=== PATIENT | male | born 1990 | race African-American/Black ===

== ENCOUNTER 2023-07-21 09:06 | Observation (INO) | payer OTHER ==
[2023-07-21] MEDS ORDERED: Pantoprazole 40 MG in Sodium Chloride 0.9% 10 ML IVPUSH ONE (09:41)
[2023-07-21] MEDS ORDERED: Prochlorperazine 10 MG/2 ML SDV IVPUSH ONE (09:42)
[2023-07-21] MEDS ORDERED: Sodium Chloride 0.9% 2.5 ML Syringe FLUSH PRN (09:46)
[2023-07-21] MEDS ORDERED: Sodium Chloride 0.9% 10 ML Syringe FLUSH PRN (09:46)
[2023-07-21] MEDS ORDERED: Sodium Chloride 0.9% 1,000 ML IV ONE ×3 (09:46→15:35)
[2023-07-21] MEDS ORDERED: fentaNYL 50 MCG/ML SDV IVPUSH ONE (09:46)
[2023-07-21] MEDS ORDERED: Naloxone 0.4 MG/ML SDV IVPUSH PRN (09:46)
[2023-07-21 09:59] LABS: BASOPHILS PERCENT AUTO 0.3 % (0.0-1.5); EOSINOPHILS ABSOLUTE AUTO 0.4 K/uL (0.0-0.7); EOSINOPHILS PERCENT AUTO 3.3 % (0.0-7.0); HEMATOCRIT 46.6 % (38.0-50.0); HEMOGLOBIN 16.1 g/dL (13.0-17.0); LYMPHOCYTES ABSOLUTE AUTO 4.8 K/uL (0.6-2.4); LYMPHOCYTES PERCENT AUTO 39.9 % (16.0-40.0); MEAN CORPUSCULAR HEMOGLOBIN 29.7 pg (27.0-32.0); MEAN CORPUSCULAR HGB CONC 34.5 g/dL (31.0-37.0); MEAN CORPUSCULAR VOLUME 85.8 fL (80.0-98.0); MONOCYTES ABSOLUTE AUTO 1.3 K/uL (0.0-0.8); MONOCYTES PERCENT AUTO 10.7 % (0.0-15.0); NEUTROPHILS ABSOLUTE AUTO 5.5 K/uL (1.4-5.7); NEUTROPHILS PERCENT AUTO 45.8 % (48.0-80.0); NRBC ABSOLUTE 0 K/uL; PLATELET COUNT,PLT 378 K/uL (150-400); RED BLOOD CELL COUNT 5.43 M/uL (4.50-5.90); WHITE BLOOD CELL COUNT,WBC 11.92 K/uL (4.0-11.0)
[2023-07-21 10:02] LABS: LACTIC ACID 2.3 mmol/L (0.4-2.0)
[2023-07-21 10:06] LABS: INR 1.04 (0.86-1.11)
[2023-07-21 10:15] LABS: ALANINE AMINOTRANSFERASE,ALT 50 IU/L (14-63); ALBUMIN 4.3 g/dL (3.4-5.0); ALKALINE PHOSPHATASE 68 U/L (46-116); ASPARTATE AMNIOTRANSFERASE,AST 27 IU/L (15-37); BILIRUBIN TOTAL 0.3 mg/dL (0.2-1.0); BLOOD UREA NITROGEN,BUN 17 mg/dL (7.0-18.0); CALCIUM 9.8 mg/dL (8.5-10.1); CARBON DIOXIDE,CO2 28.9 mmol/L (21.0-32.0); CHLORIDE,CL 101 mmol/L (98-107); CREATININE 1.4 mg/dL (0.8-1.3); EST CRCL DRUG DOSING (CG) 78.44 mL/min; ESTIMATED GFR 67 mL/min (>60); ETHANOL BLOOD MEDICAL < 3.0 mg/dL; GLUCOSE RANDOM 126 mg/dL (74-106); LIPASE 1423 U/L (16-77); MAGNESIUM 1.9 mg/dL (1.8-2.4); POTASSIUM,K 3.7 mmol/L (3.5-5.1); PROTEIN TOTAL,TP 8.8 g/dL (6.4-8.2); SODIUM,NA 139 mmol/L (136-148)
[2023-07-21 10:27] LABS: AMPHETAMINES SCREEN, URINE NEGATIVE (CUTOFF=500); BARBITURATE SCREEN,URINE NEGATIVE (CUTOFF=200); BENZODIAZEPINES SCREEN,URINE NEGATIVE (CUTOFF=150); BUPRENORPHINE SCREEN,URINE NEGATIVE (CUTOFF=10); METHADONE SCREEN, URINE NEGATIVE (CUTOFF=200); METHAMPHETAMINES SCREEN, URINE NEGATIVE (CUTOFF=500); OXYCODONE SCREEN,URINE NEGATIVE (CUT0FF=100); PCP SCREEN,URINE NEGATIVE (CUTOFF=25); PROPOXYPHENE SCREEN,URINE NEGATIVE (CUTOFF=300); THC SCREEN,URINE 20 NG/ML NEGATIVE (CUTOFF=50)
[2023-07-21] MEDS ORDERED: LORazepam 2 MG/ML SDV IVPUSH PRN (10:48)
[2023-07-21] MEDS ORDERED: Folic Acid 1 MG/0.2 ML UD Syringe SUBCUT SCH (11:00)
[2023-07-21] MEDS ORDERED: Thiamine 200 MG/2 ML MDV IVPUSH SCH (11:00)
[2023-07-21 11:04] LABS: CHOLESTEROL HDL 44 mg/dL (40-60); CHOLESTEROL TOTAL 301 mg/dL (50-200); TRIGLYCERIDES 427 mg/dL (0-200)
[2023-07-21] MEDS: Morphine 2 MG/ML SYRINGE IVPUSH PRN ×3 (11:44→19:30)
[2023-07-21 11:49] LABS: CORONAVIRUS COVID-19 NAA NEGATIVE (NEGATIVE); INFLUENZA A NAA NEGATIVE (NEGATIVE); INFLUENZA B NAA NEGATIVE (NEGATIVE)
[2023-07-21] MEDS: Sodium Chloride 0.9% 1,000 ML IV SCH ×3 (11:57→21:42)
[2023-07-21] MEDS: Folic Acid 1 MG/0.2 ML UD Syringe IV SCH (13:07)
[2023-07-21] MEDS: Thiamine 200 MG/2 ML MDV IVPUSH SCH (13:07)
[2023-07-21] MEDS ORDERED: Enoxaparin 40 MG/0.4 ML Syringe SUBCUT SCH (15:45)
[2023-07-21 19:30] LABS: LACTIC ACID 1.8 mmol/L (0.4-2.0)
[2023-07-22] MEDS: Morphine 2 MG/ML SYRINGE IVPUSH PRN (01:36)
[2023-07-22] MEDS: Sodium Chloride 0.9% 1,000 ML IV SCH ×3 (02:26→12:23)
[2023-07-22 06:56] LABS: A/G RATIO 0.9 (0.9-1.6); ALBUMIN 3.3 g/dL (3.4-5.0); BILIRUBIN TOTAL 0.4 mg/dL (0.2-1.0); CALCIUM 7.9 mg/dL (8.5-10.1); CARBON DIOXIDE,CO2 24.7 mmol/L (21.0-32.0); CREATININE 0.9 mg/dL (0.8-1.3); EST CRCL DRUG DOSING (CG) 122.01 mL/min; MAGNESIUM 1.6 mg/dL (1.8-2.4); PHOSPHORUS 2.9 mg/dL (2.6-4.7); POTASSIUM,K 3.2 mmol/L (3.5-5.1)
[2023-07-22] MEDS ORDERED: Magnesium Sulfate/Water 2 GM in Premix Bag 1 BAG IV ONE (07:21)
[2023-07-22] MEDS: Potassium Chloride 100 ML IV SCH ×2 (09:16→11:41)
[2023-07-22] MEDS: Thiamine 200 MG/2 ML MDV IVPUSH SCH (09:16)
[2023-07-22] MEDS: Folic Acid 1 MG/0.2 ML UD Syringe IV SCH (09:16)
== END 2023-07-22 14:50 | disposition home or self-care (01) ==
LOC: MW.ED 09:06 → MW.MS 11:20 → INTOOBSV 11:20
PROVIDERS: ADMIT Internal Medicine; ATTEND Internal Medicine
DX: K85.90 Acute pancreatitis without necrosis or infection, unspecified (principal); K85.20 Alcohol induced acute pancreatitis without necrosis or infection; R11.2 Nausea with vomiting, unspecified; Z20.822 Contact with and (suspected) exposure to COVID-19
CPT/HCPCS: 0240U; 36415; 76705; 80053; 80061; 80305; 80307; 83605; 83690; 83735; 84100; 85025; 85610; 87040; 96361; 96374; 96375; 99285; C9113; J0780; J1650; J2270; J3010; J3411; J3475; J3480; J3490; J7030; 96365; 96366; 96367; 96372; 96376; G0378